=== PATIENT | male | born 1955 | race Caucasian/White ===

== ENCOUNTER → 2020-12-01 | Outpatient (CLI) | payer BC ==
[~2020-12-01] MED LIST: ASPIRIN CHEWABL81 MG PO; ELIQUIS 5 MG TAB5 MG PO; GLUCOPHAGE500 MG PO; LOPRESSOR 25 MG25 MG PO; NICODERM CQ1 EAC2 TD; OMNICEF 300 MG300 MG PO; ZOCOR 40 MG TAB40 MG PO
== END ==
LOC: KOH-I 12:59
DX: F17.200 Nicotine dependence, unspecified, uncomplicated (principal); E11.9 Type 2 diabetes mellitus without complications; R91.1 Solitary pulmonary nodule
CPT/HCPCS: 71271

== ENCOUNTER → 2022-05-09 | Outpatient (CLI) | payer BC | LOC: EXRD 11:31 | DX: S39.012A Strain of muscle, fascia and tendon of lower back, initial encounter (principal); M47.814 Spondylosis without myelopathy or radiculopathy, thoracic region; M51.36 Other intervertebral disc degeneration, lumbar region | CPT/HCPCS: 72070; 72100 ==